=== PATIENT | female | born 1960 | race American Indian/Alaskan Native ===

== ENCOUNTER 2019-08-02 06:11 | Inpatient (IN) | payer OTHER ==
[2019-08-02 07:05] LABS: Basophils # (Auto) 0.1 K/mm3 (0.0-0.1); Basophils % (Auto) 0.7 % (0.0-1.8); Eosinophils # (Auto) 0.1 K/mm3 (0.0-0.4); Eosinophils % (Auto) 1.3 % (0.0-4.3); Hemoglobin 14.3 gm/dl (10.1-14.3); Lymphocytes # (Auto) 1.6 K/mm3 (1.2-5.4); Lymphocytes % (Auto) 22.9 % (13.4-35.0); Mean Corpuscular HGB Conc 32 % (30-34); Mean Corpuscular Volume 80 fl (79-97); Monocytes # (Auto) 0.4 K/mm3 (0.0-0.8); Platelet Count 236 K/mm3 (140-440); Red Blood Count 5.48 M/mm3 (3.65-5.03); Red Cell Distribution Width 14.9 % (13.2-15.2)
--- NOTE | 2019-08-02 07:06 | Emergency Department Report ---
HPI - General Chief Complaint: Dyspnea/Respdistress Time Seen by Provider: 08/02/19 06:34 - [facility] HPI: Room 26 The patient is a 59-year-old female presented with a chief complaint of shortness of breath. The patient states over the past 2 weeks she's had dyspnea on exertion. The patient states she also has had to sleep propped up on pillows for several years. The patient states last night she awakened feeling short of breath and gasping for air. The patient says she eventually went back to sleep and awakened again at 04:30 with shortness of breath. The patient states any bit of exertion cause her to get winded and this resulted in her taking one hour to get dressed this morning. After arriving to the emergency Department patient states she is unable to walk up a hill secondary to shortness of breath. Patient denies chest pain or fever. The patient admits to cough productive of dark yellow green sputum over the past 2 weeks. Location: [See above] Duration: [See above] Quality: [See above] Severity: [See above] Timing: [See above] Context: [See above] Modifying factors: [See above] Associated signs and symptoms: [see above] ED Past Medical Hx - Past Medical History Previous Medical History?: Yes Hx Hypertension: Yes Hx Diabetes: Yes Hx of Cancer: Yes (Lungs/p rsxn & chemo) Hx COPD: Yes Additional medical history: scoliosis - Surgical History Past Surgical History?: Yes Additional Surgical History: hysterectomy - Family History Family history: no significant - Social History Smoking Status: Never Smoker Substance Use Type: None (denies illicit drug use) - Medications Home Medications: Home Medications Medication Instructions Recorded Confirmed Last Taken Type Bisoprolol Fumarate 10 mg PO DAILY 08/02/19 08/02/19 Unknown History Lisinopril/Hydrochlorothiazide 10 mg PO DAILY 08/02/19 08/02/19 Unknown History metFORMIN 1,000 mg PO BID 08/02/19 08/02/19 Unknown History ED Review of Systems ROS: Stated complaint: SOB Other details as noted in HPI Constitutional: denies: fever Eyes: denies: eye pain ENT: denies: throat pain Respiratory: cough, orthopnea, shortness of breath, SOB with exertion Cardiovascular: dyspnea on exertion. denies: chest pain Endocrine: no symptoms reported Gastrointestinal: denies: abdominal pain Genitourinary: denies: dysuria Musculoskeletal: denies: back pain Neurological: denies: headache Physical Exam - Physical Exam Vital Signs: Vital Signs 08/02/19 08/02/19 06:15 06:55 Temperature 98.0 F Pulse Rate 86 Respiratory 22 20 Rate Blood Pressure 178/95 O2 Sat by Pulse 98 98 Oximetry Physical Exam: GENERAL: The patient is well-developed well-nourished female lying on stretcher not appearing to be in acute distress. [] HEENT: Normocephalic. Atraumatic. Extraocular motions are intact. Patient has moist mucous membranes. NECK: Supple. Trachea midline CHEST/LUNGS: Clear to auscultation. There is no respiratory distress noted. HEART/CARDIOVASCULAR: Regular. There is no tachycardia. There is no gallop rub or murmur. ABDOMEN: Abdomen is soft, nontender. Patient has normal bowel sounds. There is no abdominal distention. SKIN: There is no rash. There is trace bilateral lower extremity edema. There is no diaphoresis. NEURO: The patient is awake, alert, and oriented. The patient is cooperative. The patient has normal speech MUSCULOSKELETAL: There is no evidence of acute injury. ED Course Vital Signs 08/02/19 08/02/19 06:15 06:55 Temperature 98.0 F Pulse Rate 86 Respiratory 22 20 Rate Blood Pressure 178/95 O2 Sat by Pulse 98 98 Oximetry ED Medical Decision Making - Lab Data Result diagrams: 08/02/19 06:39 08/02/19 06:39 Laboratory Tests 08/02/19 08/02/19 08/02/19 06:39 06:39 06:39 WBC 7.1 RBC 5.48 H Hgb 14.3 Hct 44.0 H MCV 80 MCH 26 L MCHC 32 RDW 14.9 Plt Count 236 Lymph % (Auto) 22.9 [place] % (Auto) 6.0 Eos % (Auto) 1.3 Baso % (Auto) 0.7 Lymph # 1.6 [place] # 0.4 Eos # 0.1 Baso # 0.1 Seg Neutrophils % 69.1 Seg Neutrophils # 4.9 PT INR APTT D-Dimer VBG pH Sodium 141 Potassium 4.1 Chloride 103.9 Carbon Dioxide 20 L Anion Gap 21 BUN 13 Creatinine 0.5 L Estimated GFR > 60 BUN/Creatinine Ratio 26 Glucose 238 H Calcium 10.0 Total Creatine Kinase 202 H CK-MB (CK-2) 3.2 CK-MB (CK-2) Rel Index 1.5 Troponin T < 0.010 NT-Pro-B Natriuret Pep 500.2 Influenza A (Rapid) Influenza B (Rapid) 08/02/19 08/02/19 08/02/19 06:39 07:00 07:06 WBC RBC Hgb Hct MCV MCH MCHC RDW Plt Count Lymph % (Auto) [place] % (Auto) Eos % (Auto) Baso % (Auto) Lymph # [place] # Eos # Baso # Seg Neutrophils % Seg Neutrophils # PT 13.8 INR 1.07 APTT 28.6 D-Dimer VBG pH 7.457 H Sodium Potassium Chloride Carbon Dioxide Anion Gap BUN Creatinine Estimated GFR BUN/Creatinine Ratio Glucose Calcium Total Creatine Kinase CK-MB (CK-2) CK-MB (CK-2) Rel Index Troponin T NT-Pro-B Natriuret Pep Influenza A (Rapid) Negative Influenza B (Rapid) Negative 08/02/19 07:06 WBC RBC Hgb Hct MCV MCH MCHC RDW Plt Count Lymph % (Auto) [place] % (Auto) Eos % (Auto) Baso % (Auto) Lymph # [place] # Eos # Baso # Seg Neutrophils % Seg Neutrophils # PT INR APTT D-Dimer 192.92 VBG pH Sodium Potassium Chloride Carbon Dioxide Anion Gap BUN Creatinine Estimated GFR BUN/Creatinine Ratio Glucose Calcium Total Creatine Kinase CK-MB (CK-2) CK-MB (CK-2) Rel Index Troponin T NT-Pro-B Natriuret Pep Influenza A (Rapid) Influenza B (Rapid) - EKG Data -: EKG Interpreted by Me EKG shows normal: sinus rhythm Rate: normal - EKG Data When compared to previous EKG there are: previous EKG unavailable Interpretation: other (no ischemic changes seen) - Radiology Data Radiology results: image reviewed (chest x-ray) interpreted by me: Chest [id number]. Venous congestion. No pneumothorax. No focal infiltrate - Differential Diagnosis CHF, pneumonia, COPD exacerbation Critical care attestation.: If time is entered above; I have spent that time in minutes in the direct care of this critically ill patient, excluding procedure time. ED Disposition Clinical Impression: Shortness of breath, Dyspnea on exertion Disposition: OP ADMIT IP TO THIS HOSP Is pt being admited?: Yes Does the pt Need Aspirin: Yes Condition: Fair Time of Disposition: 09:45 (hospitalist paged (Dr Rendon))
[2019-08-02 07:19] LABS: BUN/Creatinine Ratio 26; Blood Urea Nitrogen 13 mg/dL (7-17); Hemolysis Index 2
[2019-08-02 07:21] LABS: Creatine Kinase MB 3.2 ng/mL (0.0-4.0)
[2019-08-02 07:30] LABS: INR 1.07 (0.87-1.13)
[2019-08-02 07:31] LABS: Partial Thromboplastin Time 28.6 Sec. (24.2-36.6)
--- NOTE | 2019-08-02 09:32 | XRay Report ---
CHEST 1 VIEW INDICATION: Difficulty in breathing, cough. COMPARISON: None FINDINGS: Support devices: None. Heart: Within normal limits. Lungs/Pleura: Mild central pulmonary venous congestion is suspected. No consolidation, large pleural effusion or pneumothorax. Additional findings: Single Lowe kat secures the mid to lower thoracic spine with dextroscolios is. IMPRESSION: Mild central pulmonary venous congestion. Signer Name: Peng Lazcano Jr, MD Signed: 08/02/2019 9:28 AM Workstation Name: [id number]
[2019-08-02] MEDS ORDERED: FUROSEMIDE 20 MG/2 ML INJ IV ONE (09:44)
[2019-08-02] MEDS ORDERED: ASPIRIN 325 MG TAB PO ONE (09:45)
[2019-08-02] MEDS ORDERED: ACETAMINOPHEN 325 MG TAB PO PRN (13:43)
[2019-08-02] MEDS ORDERED: ONDANSETRON 4 MG/2 ML INJ IV PRN (13:43)
[2019-08-02] MEDS ORDERED: DEXTROSE 50% IN WATER (25GM) 50 ML SYRINGE IV PRN (13:47)
--- NOTE | 2019-08-02 13:49 | History and Physical Report ---
History of Present Illness Date of admission: 08/02/19 10:08 Chief complaint: Shortness of breath History of present illness: 59-year-old woman who presents to the hospital complaining of worsening shortness of breath. Has been going on for months but acutely worse in the last 2 weeks. Complaining of orthopnea and dyspnea on exertion. Now states that she is still winded with even the mildest activity such as getting dressed in the morning. She is unable to walk upon elevation, she denies chest pain or fever. She did admit to productive cough with dark green sputum 2 weeks. Past medical history; hypertension, diabetes, history of lung cancer status post surgery and chemotherapy, COPD, scoliosis Surgical history; hysterectomy, Family history Social history, never smoker, denies drug abuse or alcohol abuse. Medications and Allergies Allergies Allergy/AdvReac Type Severity Reaction Status Date / Time lisinopril AdvReac Mild Unknown Verified 08/03/19 13:55 Home Medications Medication Instructions Recorded Confirmed Last Taken Type metFORMIN 1,000 mg PO BID 08/02/19 08/02/19 Unknown History Aspirin EC [Halfprin EC] 81 mg PO QDAY #30 tablet.dr 08/04/19 Unknown Rx Furosemide [Lasix TAB] 40 mg PO QDAY #30 tablet 08/04/19 Unknown Rx Linagliptin [Tradjenta] 5 mg PO QDDIAB #30 tablet 08/04/19 Unknown Rx Metoprolol [Lopressor TAB] 50 mg PO BID #120 tablet 08/04/19 Unknown Rx Spironolactone [Aldactone] 25 mg PO QDAY #30 tablet 08/04/19 Unknown Rx Valsartan [Diovan] 160 mg PO BID #60 tablet 08/04/19 Unknown Rx Active Meds: Active Medications Acetaminophen (Tylenol) 650 mg PO Q4H PRN PRN Reason: Pain MILD(1-3)/Fever >100.5/LANDRY Enoxaparin Sodium (Enoxaparin) 40 mg SUB-Q QDAY@2200 KELLIE Furosemide (Lasix) 40 mg IV 0600,1800 KELLIE Metformin HCl (Glucophage) 1,000 mg PO BIDDIAB [facility] Miscellaneous Medication (Lisinopril/Hydrochlorothiazide) 10 mg PO DAILY KELLIE Miscellaneous Medication (Bisoprolol Fumarate) 10 mg PO DAILY KELLIE Ondansetron HCl (Zofran) 4 mg IV Q8H PRN PRN Reason: Nausea And Vomiting Sodium Chloride (Sodium Chloride Flush Syringe 10 Ml) 10 ml IV BID KELLIE Sodium Chloride (Sodium Chloride Flush Syringe 10 Ml) 10 ml IV PRN PRN PRN Reason: LINE FLUSH Review of Systems All systems: negative Constitutional: no weight loss, no chronic headaches Ears, nose, mouth and throat: no ear pain Breasts: deferred Cardiovascular: orthopnea, no chest pain Respiratory: cough Gastrointestinal: no abdominal pain Rectal: no pain Musculoskeletal: no neck stiffness Integumentary: no rash Neurological: no head injury Psychiatric: no anxiety Endocrine: no cold intolerance Hematologic/Lymphatic: no easy bruising Allergic/Immunologic: no urticaria Exam - Constitutional Vitals: Temp Pulse Resp BP Pulse Ox 98.0 F 97 H 16 155/105 96 08/02/19 06:15 08/02/19 11:53 08/02/19 11:53 08/02/19 11:43 08/02/19 11:53 General appearance: Present: mild distress, well-nourished - EENT Eyes: Present: PERRL ENT: hearing intact, clear oral mucosa - Neck Neck: Present: supple, normal ROM - Respiratory Respiratory effort: normal Respiratory: bilateral: rales - Cardiovascular Heart Sounds: Present: S1 & S2. Absent: rub, click - Extremities Extremities: pulses symmetrical, No edema Peripheral Pulses: within normal limits - Abdominal General gastrointestinal: Present: soft, non-tender, non-distended, normal bowel sounds Female genitourinary: Present: normal - Integumentary Integumentary: Present: clear, warm, dry - Musculoskeletal Musculoskeletal: gait normal, strength equal bilaterally - Psychiatric Psychiatric: appropriate mood/affect, intact judgment & insight - Neurologic Neurologic: CNII-XII intact, moves all extremities Results - Labs CBC & Chem 7: 08/04/19 06:45 08/04/19 06:45 Labs: Laboratory Last Values WBC 7.1 K/mm3 (4.5-11.0) 08/02/19 06:39 RBC 5.48 M/mm3 (3.65-5.03) H 08/02/19 06:39 Hgb 14.3 gm/dl (10.1-14.3) 08/02/19 06:39 Hct 44.0 % (30.3-42.9) H 08/02/19 06:39 MCV 80 fl (79-97) 08/02/19 06:39 MCH 26 pg (28-32) L 08/02/19 06:39 MCHC 32 % (30-34) 08/02/19 06:39 RDW 14.9 % (13.2-15.2) 08/02/19 06:39 Plt Count 236 K/mm3 (140-440) 08/02/19 06:39 Lymph % (Auto) 22.9 % (13.4-35.0) 08/02/19 06:39 [place] % (Auto) 6.0 % (0.0-7.3) 08/02/19 06:39 Eos % (Auto) 1.3 % (0.0-4.3) 08/02/19 06:39 Baso % (Auto) 0.7 % (0.0-1.8) 08/02/19 06:39 Lymph # 1.6 K/mm3 (1.2-5.4) 08/02/19 06:39 [place] # 0.4 K/mm3 (0.0-0.8) 08/02/19 06:39 Eos # 0.1 K/mm3 (0.0-0.4) 08/02/19 06:39 Baso # 0.1 K/mm3 (0.0-0.1) 08/02/19 06:39 Seg Neutrophils % 69.1 % (40.0-70.0) 08/02/19 06:39 Seg Neutrophils # 4.9 K/mm3 (1.8-7.7) 08/02/19 06:39 PT 13.8 Sec. (12.2-14.9) 08/02/19 07:06 INR 1.07 (0.87-1.13) 08/02/19 07:06 APTT 28.6 Sec. (24.2-36.6) 08/02/19 07:06 D-Dimer 192.92 ng/mlDDU (0-234) 08/02/19 07:06 VBG pH 7.457 (7.320-7.420) H 08/02/19 06:39 Sodium 141 mmol/L (137-145) 08/02/19 06:39 Potassium 4.1 mmol/L (3.6-5.0) 08/02/19 06:39 Chloride 103.9 mmol/L (98-107) 08/02/19 06:39 Carbon Dioxide 20 mmol/L (22-30) L 08/02/19 06:39 Anion Gap 21 mmol/L 08/02/19 06:39 BUN 13 mg/dL (7-17) 08/02/19 06:39 Creatinine 0.5 mg/dL (0.7-1.2) L 08/02/19 06:39 Estimated GFR > 60 ml/min 08/02/19 06:39 BUN/Creatinine Ratio 26 % 08/02/19 06:39 Glucose 238 mg/dL (65-100) H 08/02/19 06:39 Calcium 10.0 mg/dL (8.4-10.2) 08/02/19 06:39 Total Creatine Kinase 202 units/L (30-135) H 08/02/19 06:39 CK-MB (CK-2) 3.2 ng/mL (0.0-4.0) 08/02/19 06:39 CK-MB (CK-2) Rel Index 1.5 (0-4) 08/02/19 06:39 Troponin T < 0.010 ng/mL (0.00-0.029) 08/02/19 06:39 NT-Pro-B Natriuret Pep 500.2 pg/mL (0-900) 08/02/19 06:39 Influenza A (Rapid) Negative (Negative) 08/02/19 07:00 Influenza B (Rapid) Negative (Negative) 08/02/19 07:00 Assessment and Plan Assessment and plan: 59-year-old woman presents to the hospital complaining of orthopnea and dyspnea on exertion Chest x-ray; mild pulmonary edema Suspected CHF? Diuretics, echo, cardiology consult Diabetes SSI Hypertension Optimize BP meds dvt ppx; lovenox
[2019-08-02] MEDS ORDERED: FUROSEMIDE 40 MG/4 ML INJ IV SCH (15:00)
--- NOTE | 2019-08-02 15:12 | Consultation ---
History of Present Illness Consult date: 08/02/19 Requesting physician: ARY MORRELL Consult reason: congestive heart failure History of present illness: The pt is a 59-year-old female with a past medical history of HTN, HLP, DM, COPD, lung cancer s/p chemotherapy and left thoracotomy with resection of multiple leiomyomata and wedge resection of right upper lobe mass in 2001 at [facility]. She is previously unknown to our practice. She presented with c/o worsening SOB and productive cough with green sputum for the past 2 weeks. She also c/o PND and SANCHEZ. She denies any fever, chills, chest pain, palpitations, n/v, diaphoresis, dizziness or syncope. She denies any known prior cardiac issues. She denies any prior tobacco use. Past History Past Medical History: cancer (cancer), diabetes, hypertension, hyperlipidemia Medications and Allergies Allergies Allergy/AdvReac Type Severity Reaction Status Date / Time No Known Allergies Allergy Unverified 08/02/19 06:22 Home Medications Medication Instructions Recorded Confirmed Last Taken Type Bisoprolol Fumarate 10 mg PO DAILY 08/02/19 08/02/19 Unknown History Lisinopril/Hydrochlorothiazide 1 tab PO QDAY 08/02/19 08/02/19 Unknown History [Zestoretic 20-25 mg] metFORMIN 1,000 mg PO BID 08/02/19 08/02/19 Unknown History Active Meds: Active Medications Acetaminophen (Tylenol) 650 mg PO Q4H PRN PRN Reason: Pain MILD(1-3)/Fever >100.5/LANDRY Dextrose (D50w (25gm) Syringe) 50 ml IV Q30MIN PRN; Protocol PRN Reason: Hypoglycemia Enoxaparin Sodium (Enoxaparin) 40 mg SUB-Q QDAY@2200 KELLIE Furosemide (Lasix) 40 mg IV 0600,1800 [facility] Insulin Human Lispro (Humalog) 0 unit SUB-Q ACHS KELLIE; Protocol Metformin HCl (Glucophage) 1,000 mg PO BIDDIAB [facility] Miscellaneous Medication (Lisinopril/Hydrochlorothiazide) 10 mg PO DAILY [facility] Miscellaneous Medication (Bisoprolol Fumarate) 10 mg PO DAILY [facility] Ondansetron HCl (Zofran) 4 mg IV Q8H PRN PRN Reason: Nausea And Vomiting Sodium Chloride (Sodium Chloride Flush Syringe 10 Ml) 10 ml IV BID KELLIE Sodium Chloride (Sodium Chloride Flush Syringe 10 Ml) 10 ml IV PRN PRN PRN Reason: LINE FLUSH Review of Systems Constitutional: no weight loss, no weight gain, no fever, no chills, no sweats Ears, nose, mouth and throat: no ear pain, no nose pain, no sinus pressure, no sinus pain Cardiovascular: shortness of breath, dyspnea on exertion, paroxysmal nocturnal dyspnea, high blood pressure, decreased exercise tolerance, no chest pain, no palpitations, no rapid/irregular heart beat, no edema, no syncope, no lightheadedness Respiratory: cough with sputum, shortness of breath, dyspnea on exertion, wheezing, no congestion, no pain on inspiration Gastrointestinal: no abdominal pain, no nausea, no vomiting, no diarrhea, no constipation, no change in bowel habits Genitourinary Female: no pelvic pain, no flank pain, no dysuria, no urinary frequency, no urgency Musculoskeletal: no neck stiffness, no neck pain, no shooting arm pain, no arm numbness/tingling, no low back pain Integumentary: no rash, no pruritis, no redness, no sores, no wounds Neurological: no head injury, no paralysis, no weakness, no parathesias, no numbness, no tingling, no seizures, no syncope Psychiatric: no anxiety Endocrine: no cold intolerance, no heat intolerance Hematologic/Lymphatic: no easy bruising, no easy bleeding Allergic/Immunologic: no urticaria, no wheezing Physical Examination Vital Signs Temp Pulse Resp BP Pulse Ox 98.0 F 86 22 178/95 98 08/02/19 06:15 08/02/19 06:15 08/02/19 06:15 08/02/19 06:15 08/02/19 06:15 General appearance: no acute distress HEENT: Positive: PERRL, Normocephaly, Mucus Membranes Moist Neck: Positive: neck supple, trachea midline Cardiac: Positive: Reg Rate and Rhythm, S1/S2 Lungs: Positive: Decreased Breath Sounds Neuro: Positive: Grossly Intact Abdomen: Negative: Tender Skin: Negative: Rash Musculoskeletal: No Pain Extremities: Absent: edema Results 08/02/19 06:39 08/02/19 06:39 Cardiac Enzymes 08/02/19 Range/Units 06:39 CK-MB (CK-2) 3.2 (0.0-4.0) ng/mL Coagulation 08/02/19 Range/Units 07:06 PT 13.8 (12.2-14.9) Sec. INR 1.07 (0.87-1.13) APTT 28.6 (24.2-36.6) Sec. CBC 08/02/19 Range/Units 06:39 WBC 7.1 (4.5-11.0) K/mm3 RBC 5.48 H (3.65-5.03) M/mm3 Hgb 14.3 (10.1-14.3) gm/dl Hct 44.0 H (30.3-42.9) % Plt Count 236 (140-440) K/mm3 Lymph # 1.6 (1.2-5.4) K/mm3 [place] # 0.4 (0.0-0.8) K/mm3 Eos # 0.1 (0.0-0.4) K/mm3 Baso # 0.1 (0.0-0.1) K/mm3 Comprehensive Metabolic Panel 08/02/19 Range/Units 06:39 Sodium 141 (137-145) mmol/L Potassium 4.1 (3.6-5.0) mmol/L Chloride 103.9 (98-107) mmol/L Carbon Dioxide 20 L (22-30) mmol/L BUN 13 (7-17) mg/dL Creatinine 0.5 L (0.7-1.2) mg/dL Glucose 238 H (65-100) mg/dL Calcium 10.0 (8.4-10.2) mg/dL - Imaging and Cardiology Echo: pending EKG: report reviewed, image reviewed EKG interpretations - Telemetry EKG Rhythm: Sinus Rhythm - EKG Sinus rhythms and dysrhythmias: sinus rhythm Assessment and Plan Optimize BPs. Decrease IV lasix to daily dosing. Await echo. Further recs to follow per hospital course. The patient has been seen in conjunction with Dr. Jacobs who agrees with the assessment and plan of care. - Patient Problems (1) COPD exacerbation Current Visit: Yes Status: Acute (2) Dyspnea Current Visit: Yes Status: Acute (3) HTN (hypertension) Current Visit: Yes Status: Chronic (4) Hyperlipidemia Current Visit: Yes Status: Chronic (5) Diabetes Current Visit: Yes Status: Chronic (6) History of lung cancer Current Visit: Yes Status: Chronic
[2019-08-02] MEDS: INSULIN LISPRO 100 UNIT/ML SUB-Q SCH ×2 (16:50→22:05)
[2019-08-02] MEDS: metFORMIN 500 MG TAB PO SCH (16:50)
[2019-08-02] MEDS: ENOXAPARIN 40 MG/0.4 ML INJ SUB-Q SCH (21:39)
[2019-08-02] MEDS ORDERED: METOPROLOL TARTRATE 25 MG TAB PO SCH (22:00)
[2019-08-02] MEDS ORDERED: NON-FORMULARY EACH (Metformin 1,000 MG) PO SCH (22:00)
[2019-08-03] MEDS ORDERED: FUROSEMIDE 40 MG/4 ML INJ IV SCH (06:00)
[2019-08-03 08:27] LABS: BUN/Creatinine Ratio 18; Blood Urea Nitrogen 11 mg/dL (7-17); Calcium 10.1 mg/dL (8.4-10.2); Hemolysis Index 3
--- NOTE | 2019-08-03 08:36 | Progress Note ---
Assessment and Plan Echocardiogram reveals moderate LV dysfunction patient has acute systolic heart failure still unable to lie down flat. We'll continue IV Lasix twice a day. Is having a cough. The lisinopril and place patient on Diovan 80 mg twice a day patient is mildly tachycardic increase metoprolol 50 mg twice a day we'll add also Aldactone 25 mg. Patient advised to ambulate and monitor shortness of breath - Patient Problems (1) Acute systolic CHF (congestive heart failure), NYHA class 4 Current Visit: Yes Status: Acute (2) Diabetes Current Visit: Yes Status: Chronic Qualifiers: Diabetes mellitus type: type 2 Diabetes mellitus nursing home insulin use: with meterman use Diabetes mellitus complication status: with circulatory complication Diabetes mellitus complication detail: with other circulatory complications Qualified Code(s): E11.59 - Type 2 diabetes mellitus with other circulatory complications; Z79.4 - intermediate (current) use of insulin (3) HTN (hypertension) Current Visit: Yes Status: Chronic Qualifiers: Hypertension type: essential hypertension Qualified Code(s): I10 - Essential (primary) hypertension (4) Hyperlipidemia Current Visit: Yes Status: Chronic Qualifiers: Hyperlipidemia type: mixed hyperlipidemia Qualified Code(s): E78.2 - Mixed hyperlipidemia Subjective Date of service: 08/03/19 Principal diagnosis: sob Interval history: Patient states leg edema and shortness of breath have improved but is unable to lie flat on her back in the bed Objective Vital Signs Temp Pulse Pulse Resp BP BP Pulse Ox 08/03/19 07:44 98.6 F 91 H 18 148/80 98 08/03/19 04:39 98.3 F 08/03/19 04:37 87 18 165/94 99 08/03/19 04:09 84 08/02/19 23:53 91 H 20 94 08/02/19 23:26 98.7 F 08/02/19 23:25 90 20 151/95 96 08/02/19 21:39 91 H 145/86 08/02/19 20:58 98.5 F 08/02/19 20:56 91 H 20 145/86 94 08/02/19 20:28 88 08/02/19 16:34 98.3 F 18 170/102 08/02/19 12:19 98.5 F 18 161/88 08/02/19 11:53 89 97 H 16 96 08/02/19 11:43 92 H 16 155/105 99 08/02/19 11:40 155/105 08/02/19 10:50 92 H 12 180/105 98 08/02/19 10:40 93 H 14 180/105 99 08/02/19 10:30 93 H 13 180/105 95 08/02/19 10:20 94 H 21 141/78 97 08/02/19 10:10 89 17 180/112 98 08/02/19 10:00 100 H 13 141/78 94 08/02/19 09:50 96 H 16 141/78 98 08/02/19 09:41 141/78 85 08/02/19 09:36 141/78 88 08/02/19 09:29 141/78 84 08/02/19 09:15 141/78 69 L 08/02/19 09:05 85 16 141/78 97 08/02/19 09:00 85 20 141/78 94 08/02/19 08:50 86 21 144/84 99 08/02/19 08:40 83 20 144/84 96 - Physical Examination General: No Apparent Distress HEENT: Positive: PERRL, Normocephaly, Mucus Membranes Moist Neck: Positive: neck supple, trachea midline Cardiac: Positive: Tachycardia Lungs: Positive: clear to auscultation Neuro: Positive: Grossly Intact Abdomen: Negative: Tender Skin: Negative: Rash Musculoskeletal: No Pain Extremities: Absent: edema - Labs and Meds Comprehensive Metabolic Panel 08/03/19 Range/Units 07:20 Sodium 138 (137-145) mmol/L Potassium 3.4 L (3.6-5.0) mmol/L Chloride 100.8 (98-107) mmol/L Carbon Dioxide 22 (22-30) mmol/L BUN 11 (7-17) mg/dL Creatinine 0.6 L (0.7-1.2) mg/dL Glucose 203 H (65-100) mg/dL Calcium 10.1 (8.4-10.2) mg/dL - Imaging and Cardiology EKG: report reviewed, image reviewed Echo: report reviewed (moderate LV dysfunction EF 35-40%of significant regurgitations) - Telemetry EKG Rhythm: Sinus Tachycardia - EKG Sinus rhythms and dysrhythmias: sinus rhythm
[2019-08-03] MEDS ORDERED: METOCLOPRAMIDE 10 MG/2 ML INJ IV PRN (08:56)
[2019-08-03] MEDS ORDERED: PROMETHAZINE 25 MG RECT SUPP PR PRN (08:56)
[2019-08-03] MEDS: INSULIN LISPRO 100 UNIT/ML SUB-Q SCH ×4 (09:32→22:07)
[2019-08-03] MEDS: metFORMIN 500 MG TAB PO SCH ×2 (09:32→18:00)
[2019-08-03] MEDS ORDERED: BISOPROLOL FUMARATE 10 MG PO SCH ×2 (10:00)
[2019-08-03] MEDS ORDERED: NON-FORMULARY EACH (Lisinopril/Hydrochlorothiazide 10 MG) PO SCH (10:00)
[2019-08-03] MEDS: VALSARTAN 40 MG TAB PO SCH ×3 (10:24→22:09)
[2019-08-03] MEDS: SPIRONOLACTONE 25 MG TAB PO SCH (10:25)
[2019-08-03] MEDS: METOPROLOL TARTRATE 25 MG TAB PO SCH ×3 (10:25→22:09)
[2019-08-03] MEDS: ASPIRIN 81 MG TAB CHEW PO SCH (10:25)
[2019-08-03] MEDS: FUROSEMIDE 40 MG/4 ML INJ IV SCH ×3 (10:26→22:08)
--- NOTE | 2019-08-03 13:52 | Progress Note ---
Assessment and Plan Assessment and plan: 59-year-old woman presents to the hospital complaining of orthopnea and dyspnea on exertion Chest x-ray; mild pulmonary edema acute systolic CHF, EF 35% Diuretics, , cardiology consult, input appreciated, [facility] and [facility] Cardiology to perform coronary risk stratification , likely as outpatient Diabetes, uncontrolled, a1c 9.3 SSI, metformin, add tradjenta Hypertension Optimize BP meds, had cough with DELVIS, added as drug reaction, now on arb hydralazine PRN dvt ppx; lovenox History Interval history: Review of systems Constitutional: No fevers, no malaise, no joint pains CVS: No chest pain, orthopnea and shortness of breath and dyspnea on exertion improving GI: No abdominal pain, no diarrhea, no vomiting, no constipation Respiratory: , no wheezing, no coughing Hospitalist Physical - Physical exam Narrative exam: General.: Appears well, no distress, nontoxic HEENT: Moist mucous membranes, extraocular muscles intact, no lymphadenopathy Neck: supple Cardiac: S1-S2 heard Lungs: Bibasilar rales Abdomen: soft , nontender, nondistended, bowel sounds positive Extremities: no edema clubbing or cyanosis Skin: no rash or lesions Neurologic: no gross focal deficits Psych: calm, and cooperative - Constitutional Vitals: Temp Pulse Resp BP Pulse Ox 97.8 F 90 24 180/89 97 08/03/19 10:04 08/03/19 11:10 08/03/19 10:04 08/03/19 10:25 08/03/19 10:04 General appearance: Present: no acute distress Results - Labs CBC & Chem 7: 08/04/19 06:45 08/04/19 06:45 Labs: Laboratory Last Values WBC 7.1 K/mm3 (4.5-11.0) 08/02/19 06:39 RBC 5.48 M/mm3 (3.65-5.03) H 08/02/19 06:39 Hgb 14.3 gm/dl (10.1-14.3) 08/02/19 06:39 Hct 44.0 % (30.3-42.9) H 08/02/19 06:39 MCV 80 fl (79-97) 08/02/19 06:39 MCH 26 pg (28-32) L 08/02/19 06:39 MCHC 32 % (30-34) 08/02/19 06:39 RDW 14.9 % (13.2-15.2) 08/02/19 06:39 Plt Count 236 K/mm3 (140-440) 08/02/19 06:39 Lymph % (Auto) 22.9 % (13.4-35.0) 08/02/19 06:39 [place] % (Auto) 6.0 % (0.0-7.3) 08/02/19 06:39 Eos % (Auto) 1.3 % (0.0-4.3) 08/02/19 06:39 Baso % (Auto) 0.7 % (0.0-1.8) 08/02/19 06:39 Lymph # 1.6 K/mm3 (1.2-5.4) 08/02/19 06:39 [place] # 0.4 K/mm3 (0.0-0.8) 08/02/19 06:39 Eos # 0.1 K/mm3 (0.0-0.4) 08/02/19 06:39 Baso # 0.1 K/mm3 (0.0-0.1) 08/02/19 06:39 Seg Neutrophils % 69.1 % (40.0-70.0) 08/02/19 06:39 Seg Neutrophils # 4.9 K/mm3 (1.8-7.7) 08/02/19 06:39 PT 13.8 Sec. (12.2-14.9) 08/02/19 07:06 INR 1.07 (0.87-1.13) 08/02/19 07:06 APTT 28.6 Sec. (24.2-36.6) 08/02/19 07:06 D-Dimer 192.92 ng/mlDDU (0-234) 08/02/19 07:06 VBG pH 7.457 (7.320-7.420) H 08/02/19 06:39 Sodium 138 mmol/L (137-145) 08/03/19 07:20 Potassium 3.4 mmol/L (3.6-5.0) L 08/03/19 07:20 Chloride 100.8 mmol/L (98-107) 08/03/19 07:20 Carbon Dioxide 22 mmol/L (22-30) 08/03/19 07:20 Anion Gap 19 mmol/L 08/03/19 07:20 BUN 11 mg/dL (7-17) 08/03/19 07:20 Creatinine 0.6 mg/dL (0.7-1.2) L 08/03/19 07:20 Estimated GFR > 60 ml/min 08/03/19 07:20 BUN/Creatinine Ratio 18 % 08/03/19 07:20 Glucose 203 mg/dL (65-100) H 08/03/19 07:20 POC Glucose 155 (70-105) H 08/03/19 11:37 Hemoglobin A1c 9.3 % (4-6) H 08/03/19 07:20 Calcium 10.1 mg/dL (8.4-10.2) 08/03/19 07:20 Total Creatine Kinase 202 units/L (30-135) H 08/02/19 06:39 CK-MB (CK-2) 3.2 ng/mL (0.0-4.0) 08/02/19 06:39 CK-MB (CK-2) Rel Index 1.5 (0-4) 08/02/19 06:39 Troponin T < 0.010 ng/mL (0.00-0.029) 08/02/19 06:39 NT-Pro-B Natriuret Pep 500.2 pg/mL (0-900) 08/02/19 06:39 Influenza A (Rapid) Negative (Negative) 08/02/19 07:00 Influenza B (Rapid) Negative (Negative) 08/02/19 07:00 Active Medications - Current Medications Current Medications: Generic Name Dose Route Start Last Admin Trade Name Freq PRN Reason Stop Dose Admin Acetaminophen 650 mg 08/02/19 13:43 Tylenol PO Q4H PRN Pain MILD(1-3)/Fever >100.5/LANDRY Aspirin 81 mg 08/03/19 10:00 08/03/19 10:25 Baby Aspirin PO 81 mg QDAY KELLIE Administration Atorvastatin Calcium 40 mg 08/03/19 22:00 Lipitor PO QHS KELLIE Dextrose 50 ml 08/02/19 13:47 D50w (25gm) Syringe IV Q30MIN PRN Hypoglycemia Protocol Enoxaparin Sodium 40 mg 08/02/19 22:00 08/02/19 21:39 Enoxaparin SUB-Q 40 mg QDAY@2200 KELLIE Administration Furosemide 40 mg 08/03/19 10:00 08/03/19 10:26 Lasix IV 40 mg BID KELLIE Administration Insulin Human Lispro 0 unit 08/02/19 16:30 08/03/19 12:10 Humalog SUB-Q Not Given ACHS [facility] Protocol Metformin HCl 1,000 mg 08/02/19 17:00 08/03/19 09:32 Glucophage PO 1,000 mg BIDDIAB KELLIE Administration Metoclopramide HCl 10 mg 08/03/19 08:56 Reglan IV Q6H PRN Nausea And Vomiting Metoprolol Tartrate 50 mg 08/03/19 08:32 08/03/19 10:25 Metoprolol PO 50 mg BID KELLIE Administration Miscellaneous Medication 10 mg 08/03/19 10:00 Bisoprolol Fumarate PO DAILY KELLIE Ondansetron HCl 4 mg 08/02/19 13:43 Zofran IV Q8H PRN Nausea And Vomiting Promethazine HCl 25 mg 08/03/19 08:56 Phenergan [place] Q6H PRN Nausea And Vomiting Sodium Chloride 10 ml 08/02/19 22:00 08/03/19 09:33 Sodium Chloride Flush Syringe 10 Ml IV 10 ml BID KELLIE Administration Sodium Chloride 10 ml 08/02/19 13:43 Sodium Chloride Flush Syringe 10 Ml IV PRN PRN LINE FLUSH Spironolactone 25 mg 08/03/19 10:00 08/03/19 10:25 Aldactone PO 25 mg QDAY KELLIE Administration Valsartan 80 mg 08/03/19 10:00 08/03/19 10:24 Diovan PO 80 mg BID KELLIE Administration Nutrition/Malnutrition Assess - Dietary Evaluation Nutrition/Malnutrition Findings: Nutrition Notes Start: 08/03/19 12:38 Freq: Status: Active Protocol: Document 08/03/19 12:38 LP (Rec: 08/03/19 12:42 LP [id number]) Nutrition Notes Need for Assessment generated from: MD Order,Education Initial or Follow up Brief Note Current Diagnosis COPD,Diabetes,Hypertension Other Pertinent Diagnosis CA Current Diet Cardiac Labs/Tests BG 238 Pertinent Medications Lasix Metformin Height 4 ft 11 in Weight 86.183 kg [place] Body Weight (kg) 43.18 BMI 38.3 Weight Status Obese Subjective/Other Information Consult for diet education. Pt states she skips meals due to work schedule. Pt states not checking BG levels at home lately. Pt noted with edema and tried Glucerna for days she skips a meal. Pt denies wt changes. Minimum of two criteria No Fluid Accumulation Mild (non-severe) #1 Nutrition Diagnosis Food and nutrition-related knowledge deficit Etiology DM diet and sodium/fluid As Evidenced by Signs and Symptoms Pt not following diet at home and not eating consistently Nutrition Intervention Teaching Recipient Patient Learning Readiness Good Teaching Methods Discussion,Handout Response to Teaching Verbalize understanding Education Handouts Provided Consisistent CHO diet and low Na and space out fluid Barriers to Learning Environmental RD phone number provided Yes Patient aware of follow up options Yes Revisit per MD consult or patient Sign Off request:
[2019-08-03] MEDS ORDERED: hydrALAZINE 20 MG/1 ML INJ IV PRN (13:54)
[2019-08-03] MEDS: LINAGLIPTIN 5 MG TAB PO SCH (18:00)
[2019-08-03] MEDS: ENOXAPARIN 40 MG/0.4 ML INJ SUB-Q SCH ×2 (20:52→22:07)
--- NOTE | 2019-08-04 07:50 | Progress Note ---
Assessment and Plan Assessment and plan: 59-year-old woman presents to the hospital complaining of orthopnea and dyspnea on exertion Chest x-ray; mild pulmonary edema acute systolic CHF, EF 35% Diuretics, , cardiology input appreciated, BBl and Arb will need coronary risk stratification prior to dc Diabetes, uncontrolled, a1c 9.3 SSI, metformin, add tradjenta Hypertension Optimize BP meds, had cough with DELVIS, added as drug reaction, now on arb hydralazine PRN dvt ppx; rajinderx Hospitalist Physical - Constitutional Vitals: Temp Pulse Resp BP Pulse Ox 98.2 F 93 H 18 143/93 95 08/04/19 07:18 08/04/19 07:18 08/04/19 07:18 08/04/19 07:18 08/04/19 07:18 General appearance: Present: no acute distress Results - Labs CBC & Chem 7: 08/02/19 06:39 08/03/19 07:20 Labs: Laboratory Last Values WBC 7.1 K/mm3 (4.5-11.0) 08/02/19 06:39 RBC 5.48 M/mm3 (3.65-5.03) H 08/02/19 06:39 Hgb 14.3 gm/dl (10.1-14.3) 08/02/19 06:39 Hct 44.0 % (30.3-42.9) H 08/02/19 06:39 MCV 80 fl (79-97) 08/02/19 06:39 MCH 26 pg (28-32) L 08/02/19 06:39 MCHC 32 % (30-34) 08/02/19 06:39 RDW 14.9 % (13.2-15.2) 08/02/19 06:39 Plt Count 236 K/mm3 (140-440) 08/02/19 06:39 Lymph % (Auto) 22.9 % (13.4-35.0) 08/02/19 06:39 [place] % (Auto) 6.0 % (0.0-7.3) 08/02/19 06:39 Eos % (Auto) 1.3 % (0.0-4.3) 08/02/19 06:39 Baso % (Auto) 0.7 % (0.0-1.8) 08/02/19 06:39 Lymph # 1.6 K/mm3 (1.2-5.4) 08/02/19 06:39 [place] # 0.4 K/mm3 (0.0-0.8) 08/02/19 06:39 Eos # 0.1 K/mm3 (0.0-0.4) 08/02/19 06:39 Baso # 0.1 K/mm3 (0.0-0.1) 08/02/19 06:39 Seg Neutrophils % 69.1 % (40.0-70.0) 08/02/19 06:39 Seg Neutrophils # 4.9 K/mm3 (1.8-7.7) 08/02/19 06:39 PT 13.8 Sec. (12.2-14.9) 08/02/19 07:06 INR 1.07 (0.87-1.13) 08/02/19 07:06 APTT 28.6 Sec. (24.2-36.6) 08/02/19 07:06 D-Dimer 192.92 ng/mlDDU (0-234) 08/02/19 07:06 VBG pH 7.457 (7.320-7.420) H 08/02/19 06:39 Sodium 138 mmol/L (137-145) 08/03/19 07:20 Potassium 3.4 mmol/L (3.6-5.0) L 08/03/19 07:20 Chloride 100.8 mmol/L (98-107) 08/03/19 07:20 Carbon Dioxide 22 mmol/L (22-30) 08/03/19 07:20 Anion Gap 19 mmol/L 08/03/19 07:20 BUN 11 mg/dL (7-17) 08/03/19 07:20 Creatinine 0.6 mg/dL (0.7-1.2) L 08/03/19 07:20 Estimated GFR > 60 ml/min 08/03/19 07:20 BUN/Creatinine Ratio 18 % 08/03/19 07:20 Glucose 203 mg/dL (65-100) H 08/03/19 07:20 POC Glucose 133 (70-105) H 08/03/19 20:31 Hemoglobin A1c 9.3 % (4-6) H 08/03/19 07:20 Calcium 10.1 mg/dL (8.4-10.2) 08/03/19 07:20 Total Creatine Kinase 202 units/L (30-135) H 08/02/19 06:39 CK-MB (CK-2) 3.2 ng/mL (0.0-4.0) 08/02/19 06:39 CK-MB (CK-2) Rel Index 1.5 (0-4) 08/02/19 06:39 Troponin T < 0.010 ng/mL (0.00-0.029) 08/02/19 06:39 NT-Pro-B Natriuret Pep 500.2 pg/mL (0-900) 08/02/19 06:39 Influenza A (Rapid) Negative (Negative) 08/02/19 07:00 Influenza B (Rapid) Negative (Negative) 08/02/19 07:00 Active Medications - Current Medications Current Medications: Generic Name Dose Route Start Last Admin Trade Name Freq PRN Reason Stop Dose Admin Acetaminophen 650 mg 08/02/19 13:43 Tylenol PO Q4H PRN Pain MILD(1-3)/Fever >100.5/LANDRY Aspirin 81 mg 08/03/19 10:00 08/03/19 10:25 Baby Aspirin PO 81 mg QDAY KELLIE Administration Atorvastatin Calcium 40 mg 08/03/19 22:00 08/03/19 22:09 Lipitor PO Not Given QHS [facility] Dextrose 50 ml 08/02/19 13:47 D50w (25gm) Syringe IV Q30MIN PRN Hypoglycemia Protocol Enoxaparin Sodium 40 mg 08/02/19 22:00 08/03/19 22:07 Enoxaparin SUB-Q Not Given QDAY@2200 [facility] Furosemide 40 mg 08/03/19 10:00 08/03/19 22:08 Lasix IV Not Given BID KELLIE Hydralazine HCl 10 mg 08/03/19 13:54 Apresoline IV Q4H PRN BP >160/100 Insulin Human Lispro 0 unit 08/02/19 16:30 08/03/19 22:07 Humalog SUB-Q Not Given ACHS KELLIE Protocol Linagliptin 5 mg 08/03/19 16:00 08/03/19 18:00 Tradjenta PO 5 mg QDDIAB KELLIE Administration Metformin HCl 1,000 mg 08/02/19 17:00 08/03/19 18:00 Glucophage PO 1,000 mg BIDDIAB KELLIE Administration Metoclopramide HCl 10 mg 08/03/19 08:56 08/03/19 19:46 Reglan IV 10 mg Q6H PRN Administration Nausea And Vomiting Metoprolol Tartrate 50 mg 08/03/19 08:32 08/03/19 22:09 Metoprolol PO Not Given BID KELLIE Ondansetron HCl 4 mg 08/02/19 13:43 Zofran IV Q8H PRN Nausea And Vomiting Promethazine HCl 25 mg 08/03/19 08:56 Phenergan [place] Q6H PRN Nausea And Vomiting Sodium Chloride 10 ml 08/02/19 22:00 08/03/19 22:09 Sodium Chloride Flush Syringe 10 Ml IV Not Given BID KELLIE Sodium Chloride 10 ml 08/02/19 13:43 08/03/19 19:53 Sodium Chloride Flush Syringe 10 Ml IV 10 ml PRN PRN Administration LINE FLUSH Spironolactone 25 mg 08/03/19 10:00 08/03/19 10:25 Aldactone PO 25 mg QDAY KELLIE Administration Valsartan 80 mg 08/03/19 10:00 08/03/19 22:09 Diovan PO Not Given BID KELLIE Nutrition/Malnutrition Assess - Dietary Evaluation Nutrition/Malnutrition Findings: Nutrition Notes Start: 08/03/19 12:38 Freq: Status: Active Protocol: Document 08/03/19 12:38 LP (Rec: 08/03/19 12:42 LP [id number]) Nutrition Notes Need for Assessment generated from: MD Order,Education Initial or Follow up Brief Note Current Diagnosis COPD,Diabetes,Hypertension Other Pertinent Diagnosis CA Current Diet Cardiac Labs/Tests BG 238 Pertinent Medications Lasix Metformin Height 4 ft 11 in Weight 86.183 kg [place] Body Weight (kg) 43.18 BMI 38.3 Weight Status Obese Subjective/Other Information Consult for diet education. Pt states she skips meals due to work schedule. Pt states not checking BG levels at home lately. Pt noted with edema and tried Glucerna for days she skips a meal. Pt denies wt changes. Minimum of two criteria No Fluid Accumulation Mild (non-severe) #1 Nutrition Diagnosis Food and nutrition-related knowledge deficit Etiology DM diet and sodium/fluid As Evidenced by Signs and Symptoms Pt not following diet at home and not eating consistently Nutrition Intervention Teaching Recipient Patient Learning Readiness Good Teaching Methods Discussion,Handout Response to Teaching Verbalize understanding Education Handouts Provided Consisistent CHO diet and low Na and space out fluid Barriers to Learning Environmental RD phone number provided Yes Patient aware of follow up options Yes Revisit per MD consult or patient Sign Off request:
[2019-08-04 08:21] LABS: Basophils % (Auto) 0.5 % (0.0-1.8); Eosinophils # (Auto) 0.1 K/mm3 (0.0-0.4); Eosinophils % (Auto) 1.5 % (0.0-4.3); Hematocrit 44.3 % (30.3-42.9); Hemoglobin 14.7 gm/dl (10.1-14.3); Lymphocytes # (Auto) 2.3 K/mm3 (1.2-5.4); Lymphocytes % (Auto) 26.3 % (13.4-35.0); Mean Corpuscular HGB Conc 33 % (30-34); Mean Corpuscular Volume 79 fl (79-97); Monocytes # (Auto) 0.6 K/mm3 (0.0-0.8); Monocytes % (Auto) 6.4 % (0.0-7.3); Platelet Count 246 K/mm3 (140-440); Red Cell Distribution Width 14.7 % (13.2-15.2)
[2019-08-04 08:34] LABS: Alanine Aminotransferase 22 units/L (7-56); Albumin 4.1 g/dL (3.9-5); BUN/Creatinine Ratio 25; Blood Urea Nitrogen 15 mg/dL (7-17); Hemolysis Index 9
[2019-08-04] MEDS: INSULIN LISPRO 100 UNIT/ML SUB-Q SCH ×2 (08:35→12:40)
[2019-08-04] MEDS: LINAGLIPTIN 5 MG TAB PO SCH (08:35)
[2019-08-04] MEDS: metFORMIN 500 MG TAB PO SCH (08:35)
[2019-08-04] MEDS: VALSARTAN 40 MG TAB PO SCH (08:59)
[2019-08-04] MEDS: ASPIRIN 81 MG TAB CHEW PO SCH (09:00)
[2019-08-04] MEDS: SPIRONOLACTONE 25 MG TAB PO SCH (09:00)
[2019-08-04] MEDS: METOPROLOL TARTRATE 25 MG TAB PO SCH (09:01)
[2019-08-04] MEDS: FUROSEMIDE 40 MG/4 ML INJ IV SCH (09:01)
[2019-08-04] MEDS ORDERED: VALSARTAN 40 MG TAB PO SCH (09:38)
--- NOTE | 2019-08-04 09:40 | Progress Note ---
Assessment and Plan Patient's shortness of breath has improved we will stop intravenous Lasix and changed to by mouth Lasix 40 mg continue Aldactone 25. Increase Diovan to 360 mg twice a day. Continue metoprolol 50 g twice a day. Continue aspirin 81 mg. Continue Lipitor 40 mg continue diabetic treatment as per primary care team. Patient's currently compensated heart failure. Discussed in detail about fluid restriction salt restriction. Patient may be discharged from a cardiovascular point of view discussed with primary care team - Patient Problems (1) Acute systolic CHF (congestive heart failure), NYHA class 4 Current Visit: Yes Status: Acute (2) Diabetes Current Visit: Yes Status: Chronic Qualifiers: Diabetes mellitus type: type 2 Diabetes mellitus moth exterminator insulin use: with [facility] use Diabetes mellitus complication status: with circulatory complication Diabetes mellitus complication detail: with other circulatory complications Qualified Code(s): E11.59 - Type 2 diabetes mellitus with other circulatory complications; Z79.4 - jail (current) use of insulin (3) HTN (hypertension) Current Visit: Yes Status: Chronic Qualifiers: Hypertension type: essential hypertension Qualified Code(s): I10 - Essential (primary) hypertension (4) Hyperlipidemia Current Visit: Yes Status: Chronic Qualifiers: Hyperlipidemia type: mixed hyperlipidemia Qualified Code(s): E78.2 - Mixed hyperlipidemia Subjective Date of service: 08/04/19 Principal diagnosis: sob Interval history: Patient is coughing has improved and shortness of breath have improved Objective Vital Signs Temp Pulse Resp BP Pulse Ox 08/04/19 09:01 90 143/93 08/04/19 09:00 90 143/93 08/04/19 08:59 90 143/93 08/04/19 08:00 18 08/04/19 07:18 98.2 F 93 H 18 143/93 95 08/04/19 05:14 98.0 F 85 18 142/82 96 08/04/19 03:00 85 08/03/19 23:48 97.8 F 86 18 110/75 98 08/03/19 20:51 91 H 167/102 08/03/19 20:50 91 H 167/102 08/03/19 19:24 98.5 F 91 H 20 167/102 99 08/03/19 19:00 91 H 08/03/19 11:10 90 08/03/19 10:25 92 H 180/89 08/03/19 10:24 92 H 08/03/19 10:04 97.8 F 91 H 24 97 - Physical Examination General: No Apparent Distress HEENT: Positive: PERRL, Normocephaly, Mucus Membranes Moist Neck: Positive: neck supple, trachea midline Cardiac: Positive: Reg Rate and Rhythm Lungs: Positive: clear to auscultation Neuro: Positive: Grossly Intact Abdomen: Negative: Tender Skin: Negative: Rash Musculoskeletal: No Pain Extremities: Absent: edema - Labs and Meds Cardiac Enzymes 08/04/19 Range/Units 06:45 AST 19 (5-40) units/L CBC 08/04/19 Range/Units 06:45 WBC 8.7 (4.5-11.0) K/mm3 RBC 5.60 H (3.65-5.03) M/mm3 Hgb 14.7 H (10.1-14.3) gm/dl Hct 44.3 H (30.3-42.9) % Plt Count 246 (140-440) K/mm3 Lymph # 2.3 (1.2-5.4) K/mm3 [place] # 0.6 (0.0-0.8) K/mm3 Eos # 0.1 (0.0-0.4) K/mm3 Baso # 0.0 (0.0-0.1) K/mm3 Comprehensive Metabolic Panel 08/04/19 Range/Units 06:45 Sodium 141 (137-145) mmol/L Potassium 3.6 (3.6-5.0) mmol/L Chloride 99.1 (98-107) mmol/L Carbon Dioxide 23 (22-30) mmol/L BUN 15 (7-17) mg/dL Creatinine 0.6 L (0.7-1.2) mg/dL Glucose 134 H (65-100) mg/dL Calcium 10.0 (8.4-10.2) mg/dL AST 19 (5-40) units/L ALT 22 (7-56) units/L Alkaline Phosphatase 72 (35-129) units/L Total Protein 7.3 (6.3-8.2) g/dL Albumin 4.1 (3.9-5) g/dL - Imaging and Cardiology EKG: report reviewed, image reviewed Echo: report reviewed (moderate LV dysfunction EF 35-40%of significant regurgitations) - Telemetry EKG Rhythm: Sinus Rhythm - EKG Sinus rhythms and dysrhythmias: sinus rhythm
[2019-08-04] MEDS ORDERED: VALSARTAN 160MG TAB PO SCH (10:00)
--- NOTE | 2019-08-04 10:03 | Discharge Summary ---
Providers - Providers Date of Admission: 08/02/19 10:08 Attending physician: ARY MORRELL MD 08/02/19 12:39 Consult to Cardiology [CONS] Routine Consulting Provider: ZAIDA AGUILLON Reason For Exam: CHF? 08/02/19 13:47 Consult to Dietitian/Nutrition [CONS] Routine Physician Instructions: Reason For Exam: Reason for Consult: Diet education Primary care physician: COMMERCIAL AGENT Hospitalization Condition: Fair Hospital course: 59-year-old woman presents to the hospital complaining of orthopnea and dyspnea on exertion Chest x-ray; mild pulmonary edema acute systolic CHF, EF 35% received IV Diuretics, , cardiology input appreciated, BBl and Arb, meds optimized she was euvolemic at time of dc, planned for OP MPI, discharged with oral diuretics Diabetes, uncontrolled, a1c 9.3 SSI, metformin, added tradjenta Hypertension Optimized BP meds, had cough with DELVIS, added as drug reaction, now on arb and improved dvt ppx; lovenox Disposition: DC- TO HOME OR SELFCARE Time spent for discharge: 33 mins Core Measure Documentation - Palliative Care Palliative Care/ Comfort Measures: Not Applicable - Core Measures Any of the following diagnoses?: heart failure - Heart Failure Discharge Requirements DELVIS/ARB for LVSD if EF <40%: Yes Beta rian at discharge: Yes Exam - Constitutional Vitals: Temp Pulse Resp BP Pulse Ox 98.2 F 90 18 143/93 95 08/04/19 07:18 08/04/19 09:01 08/04/19 08:00 08/04/19 09:01 08/04/19 07:18 General appearance: Present: no acute distress, well-nourished - EENT Eyes: Present: PERRL ENT: hearing intact, clear oral mucosa - Neck Neck: Present: supple, normal ROM - Respiratory Respiratory effort: normal Respiratory: bilateral: CTA - Cardiovascular Heart Sounds: Present: S1 & S2. Absent: rub, click - Extremities Extremities: pulses symmetrical, No edema Peripheral Pulses: within normal limits - Abdominal General gastrointestinal: Present: soft, non-tender, non-distended, normal bowel sounds Female genitourinary: Present: normal - Integumentary Integumentary: Present: clear, warm, dry - Musculoskeletal Musculoskeletal: gait normal, strength equal bilaterally - Psychiatric Psychiatric: appropriate mood/affect, intact judgment & insight - Neurologic Neurologic: CNII-XII intact, moves all extremities Plan Follow up with: PRIMARY CARE, [Primary Care Provider] - 3-5 Days Forms: Work/School Release Form Prescriptions: Spironolactone [Aldactone] 25 mg PO QDAY #30 tablet Valsartan [Diovan] 160 mg PO BID #60 tablet Aspirin EC [Halfprin EC] 81 mg PO QDAY #30 tablet. Furosemide [Lasix TAB] 40 mg PO QDAY #30 tablet Metoprolol [Lopressor TAB] 50 mg PO BID #120 tablet Linagliptin [Tradjenta] 5 mg PO QDDIAB #30 tablet
[2019-08-04 11:24] VITALS: BP 141/92
[2019-08-05] MEDS ORDERED: FUROSEMIDE 40 MG TAB PO SCH (10:00)
== END 2019-08-04 12:45 | disposition home or self-care (01) | DRG 291 ==
LOC: ED 06:11 → 4A 10:08
PROVIDERS: ADMIT Internal Medicine; ATTEND Internal Medicine
DX: I11.0 Hypertensive heart disease with heart failure (principal); I50.21 Acute systolic (congestive) heart failure; J44.1 Chronic obstructive pulmonary disease with (acute) exacerbation; E11.59 Type 2 diabetes mellitus with other circulatory complications; E78.2 Mixed hyperlipidemia; Z79.899 Other long term (current) drug therapy; Z85.118 Personal history of other malignant neoplasm of bronchus and lung; Z90.710 Acquired absence of both cervix and uterus; Z79.82 Long term (current) use of aspirin
CPT/HCPCS: 36415; 71045; 80048; 80053; 82550; 82553; 82805; 82962; 83036; 83880; 84484; 85025; 85379; 85610; 85730; 87040; 87400; 93005; 93010; 93306; G0378; A9270-GY; J1650; J1815; J1940; J2765; J3246

== ENCOUNTER 2020-10-07 12:44 | Outpatient (CLI) | payer OTHER | END 2020-10-07 12:45 | disposition home or self-care (01) | LOC: MAMMO 12:44 | PROVIDERS: ATTEND Clinical Nurse Specialist Adult Health | DX: Z12.31 Encounter for screening mammogram for malignant neoplasm of breast (principal) | CPT/HCPCS: 77067 ==